=== PATIENT | male | born 1965 | race Caucasian/White ===

== ENCOUNTER 2024-12-27 20:55 | Inpatient (IN) | payer OTHER ==
[~2024-12-27] VITALS: Ht 182.9 cm; Wt 95.7 kg
[~2024-12-27 20:55] MED LIST: ASPIRIN325 MG PO
[2024-12-27] MEDS: SODIUM CHLORIDE 0.9% 1000ML 1,000 ML IV ONE (22:59)
[2024-12-27] MEDS: ASPIRIN 81 MG CHEW TAB PO ONE (22:59)
[2024-12-28] VITALS (10 sets, daily range): BP systolic 122–137; BP diastolic 65–77; PULSE 74–112; RESP 18–20; TEMP 97.2–98.8; O2SAT 96–100
[2024-12-28] MEDS ORDERED: IOPAMIDOL 370 MG/ML 100 ML INFUS..BTL INJ ONE (00:21)
[2024-12-28] MEDS ORDERED: KETOROLAC TROMETHAMINE 30 MG/ML VIAL IV STA (01:12)
[2024-12-28] MEDS: SODIUM CHLORIDE 0.9% 1000ML 1,000 ML IV ONE (01:21)
[2024-12-28] MEDS: KETOROLAC TROMETHAMINE 30 MG/ML VIAL IV STA (01:25)
[2024-12-28] MEDS: SODIUM CHLORIDE 0.9% 1000ML 1,000 ML IV SCH (04:52)
[2024-12-28] MEDS ORDERED: PROMETHAZINE HCL (IM) 25 MG/ML VIAL IM PRN (05:30)
[2024-12-28] MEDS ORDERED: SODIUM CHLORIDE FLUSH 10 ML SYR INJ PRN (05:30)
[2024-12-28] MEDS ORDERED: NITROGLYCERIN 0.4 MG SUBL SL PRN (05:30)
[2024-12-28] MEDS: FAMOTIDINE 20 MG TAB PO SCH (05:30)
[2024-12-28] MEDS: ASPIRIN 81 MG CHEW TAB PO ONE (08:13)
[2024-12-28] MEDS ORDERED: ASPIRIN 325 MG TAB EC PO SCH (09:00)
[2024-12-28] MEDS ORDERED: LISINOPRIL 10 MG TAB PO SCH (09:00)
[2024-12-28] MEDS: LISINOPRIL 10 MG TAB PO SCH (16:45)
[2024-12-28] MEDS: ASPIRIN 325 MG TAB EC PO SCH (17:46)
[2024-12-28] MEDS: Morphine 4mg INJECTION 4 MG/ML INJ IV PRN (20:59)
[2024-12-29] VITALS (7 sets, daily range): BP systolic 128–143; BP diastolic 65–75; PULSE 79–94; RESP 17–18; TEMP 97.7–100.2; O2SAT 94–98
[2024-12-29 07:29] LABS: BASOPHILS % 0.1 % (0.0-1.0); EOSINOPHILS % 0.3 % (0.0-6.0); LYMPHOCYTES % 6.3 % (18.0-39.1); MONOCYTES % 7.4 % (4.4-11.3); NEUTROPHILS % 84.7 % (38.7-80.0); RED CELL DISTRIBUTION WIDTH 14.0 % (11.7-14.4)
[2024-12-29 07:40] LABS: CHOL/HDL RATIO 7.4 (3.9-4.7); EST GLOMERULAR FILTRATION RATE 107.0 ML/MIN (>=60); LDL CHOLESTEROL 63.0 MG/DL (60-130)
[2024-12-29 09:26] LABS: INR 1.35
[2024-12-29] MEDS ORDERED: IOPAMIDOL 370 MG/ML 100 ML INFUS..BTL INJ ONE (13:59)
[2024-12-29 22:13] LABS: % IRON SATURATION 15 % (15-50)
[2024-12-30] VITALS (9 sets, daily range): BP systolic 115–150; BP diastolic 55–87; PULSE 80–106; RESP 17–20; TEMP 97.8–101.3; O2SAT 93–99
[2024-12-30] MEDS: ACETAMINOPHEN 325 MG TAB PO PRN (00:01)
[2024-12-30] MEDS: IRON SUCROSE 100 MG in SODIUM CHLORIDE 0.9% 100 ML IV SCH (09:39)
[2024-12-30] MEDS: ONDANSETRON HCL INJ 2MG/ML 2ML 2 MG/ML VIAL IV PRN (15:28)
[2024-12-30] MEDS: Morphine 2mg Syringe 2 MG/ML SYR IV PRN (15:29)
[2024-12-30] MEDS: HYDROMORPHONE 1MG/1ML INJ IV PRN (20:26)
[2024-12-31] VITALS (8 sets, daily range): BP systolic 115–154; BP diastolic 62–76; PULSE 76–101; RESP 18–20; TEMP 98.2–103.1; O2SAT 94–100
[2024-12-31] MEDS: METRONIDAZOLE 500MG/NS 100ML 100 ML IV STA (02:57)
[2024-12-31] MEDS: METRONIDAZOLE 500MG/NS 100ML 100 ML IV SCH (06:53)
[2024-12-31 09:12] LABS: BASOPHILS % 0.1 % (0.0-1.0); EOSINOPHILS % 1.0 % (0.0-6.0); LYMPHOCYTES % 7.1 % (18.0-39.1); MONOCYTES % 8.4 % (4.4-11.3); NEUTROPHILS % 82.0 % (38.7-80.0); RED CELL DISTRIBUTION WIDTH 14.1 % (11.7-14.4)
[2024-12-31 09:49] LABS: EST GLOMERULAR FILTRATION RATE 97.0 ML/MIN (>=60)
[2024-12-31 11:49] LABS: ALPHA FETO-PROTEIN <1.8 ng/mL (0.0-8.4)
[2025-01-01] VITALS (26 sets, daily range): BP systolic 81–146; BP diastolic 44–80; PULSE 58–146; RESP 13–28; TEMP 98–102.5; O2SAT 93–100
[2025-01-01 05:46] LABS: BASOPHILS % 0.3 % (0.0-1.0); EOSINOPHILS % 0.8 % (0.0-6.0); LYMPHOCYTES % 7.0 % (18.0-39.1); MONOCYTES % 10.0 % (4.4-11.3); NEUTROPHILS % 80.0 % (38.7-80.0); RED CELL DISTRIBUTION WIDTH 14.2 % (11.7-14.4)
[2025-01-01 06:24] LABS: EST GLOMERULAR FILTRATION RATE 102.0 ML/MIN (>=60)
[2025-01-01] MEDS ORDERED: LIDOCAINE HCL 1% 30ML-PF VIAL ONE (09:07)
[2025-01-01] MEDS ORDERED: MIDAZOLAM HCL 2 MG/2 ML VIAL ONE (10:37)
[2025-01-01] MEDS ORDERED: FENTANYL CITRATE/PF 100MCG/2 ML INJ ONE (10:37)
[2025-01-01] MEDS ORDERED: SODIUM CHLORIDE 0.9% 250ML 250 ML ONE (10:37)
[2025-01-01] MEDS: SODIUM CHLORIDE 0.9% 500ML 500 ML IV ONE (15:05)
[2025-01-01] MEDS: LACTATED RINGER'S 3,000 ML IV ONE (16:21)
[2025-01-01 17:05] LABS: BASOPHILS % 0.2 % (0.0-1.0); EOSINOPHILS % 0.1 % (0.0-6.0); LYMPHOCYTES % 3.0 % (18.0-39.1); MONOCYTES % 5.1 % (4.4-11.3); NEUTROPHILS % 89.0 % (38.7-80.0); RED CELL DISTRIBUTION WIDTH 14.3 % (11.7-14.4)
[2025-01-01 17:25] LABS: EST GLOMERULAR FILTRATION RATE 77.0 ML/MIN (>=60)
[2025-01-01] MEDS: LACTATED RINGER'S 2,000 ML ONE (19:50)
[2025-01-02] VITALS (14 sets, daily range): BP systolic 110–145; BP diastolic 53–82; PULSE 55–100; RESP 15–29; TEMP 97.3–99.2; O2SAT 94–100
[2025-01-02 06:37] LABS: BASOPHILS % 0.2 % (0.0-1.0); EOSINOPHILS % 1.0 % (0.0-6.0); LYMPHOCYTES % 6.6 % (18.0-39.1); MONOCYTES % 7.3 % (4.4-11.3); NEUTROPHILS % 82.7 % (38.7-80.0); RED CELL DISTRIBUTION WIDTH 14.5 % (11.7-14.4)
[2025-01-02 06:59] LABS: EST GLOMERULAR FILTRATION RATE 107.0 ML/MIN (>=60)
[2025-01-02 07:31] LABS: HEPATITIS A ANTIBODY IGM (P) Negative; HEPATITIS B CORE IGM (P) Negative; HEPATITIS B SURFACE AG (P) Negative
[2025-01-02] MEDS ORDERED: ONDANSETRON ODT4 MG PO (07:43)
[2025-01-02] MEDS ORDERED: ERGOCALCIF200 MCG/1 PO (07:43)
[2025-01-02] MEDS ORDERED: PANTOPRAZOLE SO40 MG PO (07:43)
[2025-01-02] MEDS ORDERED: AMBIEN10 MG PO (07:43)
[2025-01-02] MEDS ORDERED: LISINOPRIL10 MG PO (07:43)
[2025-01-02] MEDS ORDERED: DICYCLOMINE HCL20 MG PO (07:43)
[2025-01-02] MEDS ORDERED: LORAZEPAM2 MG/1 M1 PO (07:43)
[2025-01-02] MEDS ORDERED: MECLIZINE HCL12.5 MG PO (07:43)
[2025-01-02] MEDS: CEFTRIAXONE 2 GM in SODIUM CHLORIDE 0.9% 100 ML IV SCH (08:45)
[2025-01-02] MEDS: LACTATED RINGER'S 1,000 ML INJ ONE (09:46)
[2025-01-03 03:18] VITALS: BP 133/67; PULSE 85; RESP 19; TEMP 98.2; O2SAT 96
[2025-01-03 05:32] LABS: BASOPHILS % 0.2 % (0.0-1.0); EOSINOPHILS % 1.1 % (0.0-6.0); LYMPHOCYTES % 9.0 % (18.0-39.1); MONOCYTES % 8.6 % (4.4-11.3); NEUTROPHILS % 77.8 % (38.7-80.0); RED CELL DISTRIBUTION WIDTH 14.6 % (11.7-14.4)
[2025-01-03 06:07] LABS: EST GLOMERULAR FILTRATION RATE 102.0 ML/MIN (>=60)
[2025-01-03 08:51] VITALS: BP 140/82; PULSE 84; RESP 20; TEMP 98.9; O2SAT 97
[2025-01-03 09:00] VITALS: BP 140/82; PULSE 84; RESP 20; TEMP 98.9; O2SAT 97
[2025-01-03 12:24] VITALS: BP 133/79; PULSE 95; RESP 19; TEMP 98.2; O2SAT 98
[2025-01-03 16:19] VITALS: BP 145/70; PULSE 84; RESP 20; TEMP 99.1; O2SAT 100
[2025-01-03 20:00] VITALS: BP 138/67; PULSE 95; RESP 18; TEMP 99.2; O2SAT 95
[2025-01-04] VITALS (8 sets, daily range): BP systolic 109–144; BP diastolic 59–76; PULSE 70–89; RESP 18–20; TEMP 97.3–99.1; O2SAT 95–98
[2025-01-04 05:53] LABS: BASOPHILS % 0.2 % (0.0-1.0); EOSINOPHILS % 1.2 % (0.0-6.0); LYMPHOCYTES % 10.0 % (18.0-39.1); MONOCYTES % 10.0 % (4.4-11.3); NEUTROPHILS % 74.0 % (38.7-80.0); RED CELL DISTRIBUTION WIDTH 14.5 % (11.7-14.4)
[2025-01-04 06:34] LABS: EST GLOMERULAR FILTRATION RATE 100.0 ML/MIN (>=60)
[2025-01-04] MEDS: HYDROCODONE/APAP 10MG-325MG TAB PO PRN (06:55)
[2025-01-04] MEDS: SODIUM CHLORIDE 0.9% 250ML 250 ML ONE (10:40)
[2025-01-05] VITALS (7 sets, daily range): BP systolic 118–150; BP diastolic 61–73; PULSE 70–90; RESP 16–20; TEMP 98–99.1; O2SAT 95–98
[2025-01-06] VITALS (8 sets, daily range): BP systolic 118–143; BP diastolic 64–82; PULSE 80–92; RESP 18–20; TEMP 97.6–99.2; O2SAT 97–100
[2025-01-07] VITALS (7 sets, daily range): BP systolic 120–143; BP diastolic 58–71; PULSE 70–92; RESP 18–20; TEMP 97.5–98.1; O2SAT 98–100
[2025-01-08 00:20] VITALS: BP 107/64; PULSE 81; RESP 18; TEMP 98.3; O2SAT 99
[2025-01-08 06:16] LABS: BASOPHILS % 0.3 % (0.0-1.0); EOSINOPHILS % 2.2 % (0.0-6.0); LYMPHOCYTES % 13.5 % (18.0-39.1); MONOCYTES % 8.9 % (4.4-11.3); NEUTROPHILS % 70.6 % (38.7-80.0); RED CELL DISTRIBUTION WIDTH 14.6 % (11.7-14.4)
[2025-01-08 06:23] VITALS: BP 125/66; PULSE 74; RESP 19; TEMP 97.5; O2SAT 98
[2025-01-08 06:31] LABS: EST GLOMERULAR FILTRATION RATE 105.0 ML/MIN (>=60)
[2025-01-08 09:20] VITALS: BP 124/64; PULSE 77; RESP 19; TEMP 99; O2SAT 95
[2025-01-08 12:47] VITALS: BP 127/67; PULSE 84; RESP 19; TEMP 97.8; O2SAT 100
== END 2025-01-08 13:15 | disposition home or self-care (01) | DRG 871 ==
LOC: FSED 21:54 → ERHOLD 12-28 05:33 → MED/SURG3 12-28 13:55 → ICU 01-01 15:46 → MED/SURG2 01-02 16:45
PROVIDERS: ADMIT Internal Medicine; ATTEND Internal Medicine
PROC: 0F9030Z Drainage of Liver with Drainage Device, Percutaneous Approach (ICD-10-PCS; principal; 2025-01-01)
PROC: 02HV33Z Insertion of Infusion Device into Superior Vena Cava, Percutaneous Approach (ICD-10-PCS; 2025-01-01)
PROC: 3E0333Z Introduction of Anti-inflammatory into Peripheral Vein, Percutaneous Approach (ICD-10-PCS; 2025-01-01)
DX: A41.9 Sepsis, unspecified organism (principal); E43 Unspecified severe protein-calorie malnutrition; K75.0 Abscess of liver; R65.21 Severe sepsis with septic shock; E87.20 Acidosis, unspecified; E11.22 Type 2 diabetes mellitus with diabetic chronic kidney disease; I12.9 Hypertensive chronic kidney disease with stage 1 through stage 4 chronic kidney disease, or unspecified chronic kidney disease; N18.31 Chronic kidney disease, stage 3a; E88.09 Other disorders of plasma-protein metabolism, not elsewhere classified; D50.9 Iron deficiency anemia, unspecified; E86.0 Dehydration; R06.02 Shortness of breath; R91.1 Solitary pulmonary nodule; K21.9 Gastro-esophageal reflux disease without esophagitis; R53.81 Other malaise; F41.9 Anxiety disorder, unspecified; K58.1 Irritable bowel syndrome with constipation; M54.9 Dorsalgia, unspecified; E66.9 Obesity, unspecified; Z68.28 Body mass index [BMI] 28.0-28.9, adult; Z11.52 Encounter for screening for COVID-19; Z79.82 Long term (current) use of aspirin
CPT/HCPCS: 36415; 36569; 47000; 49406; 71045; 71046; 71260; 74178; 74470; 76942; 80048; 80053; 80061; 82105; 82140; 82270; 82378; 82550; 82607; 82746; 82948; 83540; 83605; 84466; 84484; 85025; 85045; 85379; 85610; 85730; 87040; 87071; 87205; 93005; 93306; 94799; 96374; 99252; 99284; C1729; C1769; J0696; J1171; J1756; J1885; J2003; J2250; J2270; J2405; J2470; J2543; J2550; J7030; J7040; J7050; Q9967